=== PATIENT | female | born 1975 | race Caucasian/White ===

== ENCOUNTER 2018-05-30 10:00 | Outpatient (RCR) | payer BC, SELFPAY ==
--- NOTE | 2018-03-16 12:54 | HP.OTEVAL_ITS ---
Patient's Visit Information AURELIA BAUMANN is a 42 year old F, referred to Occupational Therapy by NORRIS SPAULDING, with a diagnosis of left scapholunate ligamant tear. Date of Evaluation: 03/16/18 Occupational Therapist: Bridget Kumar, OTR/L, CHT - Subjective Subjective: PT states she had difficulty for the last year or so with lifting objects- states her wrist would feel like it was pulling away from her hand. Pt states she decided to seek ortho consultation- dr. wayne'ines sx to repair. December 26 sx left scapholunate ligamant reconstruction with use of FCR. 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 - Pain left hand 2 Pain Intensity Range: 0, 4 - ROM Wrist: right 70/75 left 45/30 - Strength Pipe Fitter Apprentice: right 95# Lateral Pinch: right 18# Tripod Pinch: right 20# - Goals Goal:: pt will demo a left scientific systems analyst strength of 70# or greater to return pt to ind. level with home mtg and IADL tasks Goal:: pt will demo a increase in left wrist flex/ext by 20 degrees to increase pts ind. with ADLS and IADLS by d/c. Goal:: pt will report left hand pain no greater than 1/10 with use of left hand for home mtg. tasks by d/c Goal:: pt will demo understanding of scar mtg by end of 1st session to decrease scar adhesions. - Rehabilitation General Assessment: s/p December 26 sx left scapholunate ligamant reconstruction with use of FCR. 7-20-18 pins removed. pt demo with decrease in left wrist ROM and limited functional strength decreasing pts functional IND. with BADLS and IADLs. pt would benefit from skilled OT services 1-2x week for 4 weeks. Rehabilitation Potential: Good - Anticipated Interventions Anticipated Interventions: A/AAROM/PROM, Strengthening, Triggerpoint Release, Modalities, Orthoses - Visit Plan Frequency: 1-2x /Week Duration: 4 Weeks TEXT: Thank you for the opportunity to evaluate your patient. For Medicare and Medicare HMO plans, please review the plan of care and approve it. It will need to be FAXED BACK to us at [phone] for Medicare purposes. Please let me know if there are questions or concerns regarding this plan of care. Physician Signature: Date:
--- NOTE | 2018-03-26 18:59 | OTREVAL_ITS ---
NORRIS SPAULDING, It has been my pleasure to treat AURELIA BAUMANN over the last 3 visits for left scapholunate ligamant tear. Please see the progress note below for an update on the occupational therapy plan of care! Subjective: pt arrives to session with some improvment in use of left UE with reaching for her seat belt Objective/Function: pt demo wrist 65/35 following- pt did not gain ROM this visit- pt frustrated with lack of ROM- pt has been ed. on reason for sx and as a reconstruction to add stability to wrist not necessary flexability. pt demo awarness but still frustrated and would like more gains with ROM . Pt demo with left supervisor rework of 70# right is 95#. Plan Frequency: 1-2x /Week Duration: 4 Weeks Plan: cont tx to incrase functional strength will initiate PRE in gym Goals - Goals Goal:: pt will demo a left supervisor rework strength of 70# or greater to return pt to ind. level with home mtg and IADL tasks Goal:: pt will demo a increase in left wrist flex/ext by 20 degrees to increase pts ind. with ADLS and IADLS by d/c. Goal:: pt will report left hand pain no greater than 1/10 with use of left hand for home mtg. tasks by d/c Goal:: pt will demo understanding of scar mtg by end of 1st session to decrease scar adhesions. Anticipated Interventions Anticipated Interventions: A/AAROM/PROM, Strengthening, Triggerpoint Release, Modalities, Orthoses Please do not hesitate to contact me at [phone] by phone or Fax: if you have questions or concerns regarding this new plan of care! Sincerely, Bridget Kumar, OTR/L, CHT
--- NOTE | 2018-06-13 08:44 | HP.OTDCSUM_ITS ---
HP - OT D/C Summary It has been my pleasure to treat AURELIA BAUMANN under orders from NORRIS SPAULDING, for the diagnosis of left scapholunate ligamant tear for a total of 19 visit(s). Please see the following information for a summary of their discharge status. - Objective Objective/Function: therapist ed. pt in isometric- of wrist/hand to decrease the AROM- ed. pt on need strengthen left UP to return to work- pt advised if pain is above a 4 she is not to do strengthening- ed. pt to use athletic tape to give support when she returns to work. - Goals Patient Goals: Regain Mobility, Regain Strength, Decrease Pain, Return to Work, Improve Fine Motor Skills, Use Hand/Wrist/Arm Normally Again Goal:: pt will demo a left international sales representative strength of 70# or greater to return pt to ind. level with home mtg and IADL tasks Goal:: pt will demo a increase in left wrist flex/ext by 20 degrees to increase pts ind. with ADLS and IADLS by d/c. Goal:: pt will report left hand pain no greater than 1/10 with use of left hand for home mtg. tasks by d/c Goal:: pt will demo understanding of scar mtg by end of 1st session to decrease scar adhesions. - Plan Plan: [place] of state - D/C Information Discharge Comments: pt is returning to work out of state- pt was ed. on tape to add stability while performing job tasks. pt demo understanding. pt states she woud take her wrist braces with her as well. pt demo pain base of [facility]- pt states she has not had this pain in a long time- pt concered but unable to return to for 12 weeks. Therapist advised pt to return to and have new evaualtion of her left wrist. PT concerns with limited ROM, strength and pain. Therapist advised pt to work in pain free ROM while strengthening. pt demo understanding. If there are questions or concerns regarding this patient's occupational therapy, please fell free to call me at [phone]. Thank you for the referral of this patient. Sincerely, Bridget Kumar, OTR/L, CHT
== END 2018-05-30 19:00 | disposition home or self-care (01) ==
LOC: OT 10:00
DX: S63.8X2D Sprain of other part of left wrist and hand, subsequent encounter (principal)
CPT/HCPCS: 97035; 97110; 97140; 97166